=== PATIENT | female | born 1985 | race African-American/Black ===

== ENCOUNTER 2017-06-11 17:40 | Emergency (ER) | payer OTHER ==
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
[2017-06-11] MEDS ORDERED: IBUPROFEN 800 MG TABLET PO ONE (20:12)
[2017-06-11 20:21] VITALS: BP 137/90
== END 2017-06-11 20:21 | disposition home or self-care (01) ==
LOC: ER 17:40
DX: M25.511 Pain in right shoulder (principal); V49.40XA Driver injured in collision with unspecified motor vehicles in traffic accident, initial encounter
CPT/HCPCS: 99283